=== PATIENT | male | born 1945 | race Caucasian/White ===

== ENCOUNTER 2017-10-14 11:54 | Inpatient (IN) | payer OTHER, MEDICARE ==
[~2017-10-14] VITALS: Ht 170.2 cm; Wt 94.8 kg
[~2017-10-14 11:54] MED LIST: ZANTAC150 MG PO; ZOFRAN4 MG PO
[2017-10-14] MEDS ORDERED: ZOCOR20 MG PO (14:13)
[2017-10-14] MEDS ORDERED: DIOVAN80 MG PO (14:13)
[2017-10-14] MEDS ORDERED: SYNTHROID100 MCG PO (14:13)
[2017-10-14] MEDS ORDERED: TYLENOL EXTRA500 MG PO (14:14)
[2017-10-14] MEDS ORDERED: NIGHT TIME COL1 EAC1 PO (14:15)
[2017-10-14] MEDS ORDERED: DAY TIME COLD-1 EACH PO (14:15)
[2017-10-14 14:18] LABS: HEMATOCRIT 45.1 % (38.0-50.0); HEMOGLOBIN 15.9 G/DL (12.5-16.6); MCH 32.6 PG (29.0-34.0); MCHC 35.3 G/DL (30.0-36.0); MCV 92.4 FL (86-99); PLATELET COUNT 201 K/uL (156-360); RBC DIS.WIDTH-CV 12.3 % (11.8-14.6); RBC DIS.WIDTH-SD 41.6 % (39-53); RED BLOOD COUNT 4.88 M/uL (4.00-5.50)
[2017-10-14] MEDS ORDERED: DAY TIME COLD-237 ML PO (14:22)
[2017-10-14] MEDS ORDERED: NIGHT TIME COL355 ML PO (14:22)
[2017-10-14 14:29] LABS: CHLORIDE 105 mEq/L (99-109); POTASSIUM 3.9 mEq/L (3.7-5.4); SODIUM 137 mEq/L (136-147)
[2017-10-14 14:31] LABS: GLUCOSE 95 mg/dL (70-99)
[2017-10-14 14:35] LABS: CREATININE 1.1 mg/dL (0.6-1.3); GFR ESTIMATE (CALCULATED) > 59 mL/min/ (58.99-99999)
[2017-10-14 14:36] LABS: UREA NITROGEN (BUN) 18 mg/dL (9-23)
[2017-10-14 16:01] VITALS: BP 132/94; BP 168/105
[2017-10-14 19:30] VITALS: BP 150/90
[2017-10-14 23:20] VITALS: BP 140/90
[2017-10-15 04:39] VITALS: BP 138/72
[2017-10-15 07:17] LABS: HEMATOCRIT 42.4 % (38.0-50.0); HEMOGLOBIN 14.7 G/DL (12.5-16.6); MCH 32.4 PG (29.0-34.0); MCHC 34.7 G/DL (30.0-36.0); MCV 93.4 FL (86-99); PLATELET COUNT 198 K/uL (156-360); RBC DIS.WIDTH-CV 12.3 % (11.8-14.6); RBC DIS.WIDTH-SD 42.5 % (39-53); RED BLOOD COUNT 4.54 M/uL (4.00-5.50); WHITE BLOOD COUNT 6.6 K/uL (4.1-10.2)
[2017-10-15 07:33] VITALS: BP 148/98
[2017-10-15 07:49] LABS: CHLORIDE 106 MEQ/L (99-109); CREATININE 1.1 MG/DL (0.6-1.3); GFR ESTIMATE (CALCULATED) > 59 mL/min/ (58.99-99999); POTASSIUM 4.4 MEQ/L (3.7-5.4); SODIUM 139 MEQ/L (136-147); UREA NITROGEN (BUN) 20 mg/dL (9-23)
[2017-10-15 07:50] VITALS: BP 148/80
[2017-10-15 07:50] LABS: GLUCOSE 170 mg/dL (70-99)
[2017-10-15 11:37] VITALS: BP 146/88
[2017-10-15 20:00] VITALS: BP 142/82
[2017-10-16 00:30] VITALS: BP 142/92
[2017-10-16 06:41] LABS: BASOPHIL (%) 0.1 % (0-1); EOSINOPHIL (%) 0 % (0-5); HEMATOCRIT 39.9 % (38.0-50.0); HEMOGLOBIN 13.7 G/DL (12.5-16.6); IMMATURE GRANULOCYTE (%) 0.8 % (0.0-0.7); MCH 32.5 PG (29.0-34.0); MCHC 34.3 G/DL (30.0-36.0); MCV 94.5 FL (86-99); MONOCYTE (%) 2.2 % (3-12); MONOCYTE COUNT 0.4 K/uL (0-0.8); NEUTROPHIL (%) 91.9 % (45-76); PLATELET COUNT 198 K/uL (156-360); RBC DIS.WIDTH-CV 12.9 % (11.8-14.6); RBC DIS.WIDTH-SD 44.4 % (39-53); RED BLOOD COUNT 4.22 M/uL (4.00-5.50); WHITE BLOOD COUNT 19.6 K/uL (4.1-10.2)
[2017-10-16 07:16] LABS: CHLORIDE 108 MEQ/L (99-109); CREATININE 0.8 MG/DL (0.6-1.3); GFR ESTIMATE (CALCULATED) > 59 mL/min/ (58.99-99999); GLUCOSE 146 mg/dL (70-99); POTASSIUM 4.1 MEQ/L (3.7-5.4); SODIUM 141 MEQ/L (136-147); UREA NITROGEN (BUN) 19 mg/dL (9-23)
[2017-10-16] MEDS ORDERED: CEFTIN500 MG PO (11:26)
[2017-10-16] MEDS ORDERED: PROAIR RESPICL90 MCG IH (11:27)
[2017-10-16] MEDS ORDERED: AZITHROMYCIN500 M1 PO (11:27)
[2017-10-16] MEDS ORDERED: TYLENOL REGULA325 MG PO (11:27)
[2017-10-16] MEDS ORDERED: BENZONATATE100 MG PO (11:28)
[2017-10-16] MEDS ORDERED: PREDNISONE10 MG PO (11:29)
[2017-10-16 12:25] VITALS: BP 140/85
== END 2017-10-16 12:51 | disposition home or self-care (01) | DRG 202 ==
LOC: EME 11:54 → EDOF 14:29 → ENRESERV 14:36 → 5WEST 15:55
PROVIDERS: Internal Medicine; Physician Assistant
DX: J20.9 Acute bronchitis, unspecified (principal); J44.0 Chronic obstructive pulmonary disease with (acute) lower respiratory infection; J96.01 Acute respiratory failure with hypoxia; I10 Essential (primary) hypertension; E78.5 Hyperlipidemia, unspecified; E03.9 Hypothyroidism, unspecified; J98.11 Atelectasis; R91.8 Other nonspecific abnormal finding of lung field; Z87.891 Personal history of nicotine dependence
CPT/HCPCS: 71046; 71250; 80048; 85025; 85027; 87040; 87502; 94010; 94640; 94640 76; 94799; 99202; 99281; 99285; G0378; J0456; J0696; J1650; J2920; J7030